=== PATIENT | female | born 1985 | race Caucasian/White ===

== ENCOUNTER 2018-03-08 19:46 | Emergency (ER) | payer BC ==
[2018-03-08 20:02] VITALS: BP 130/77
--- NOTE | 2018-03-08 20:09 | ED Physician Documentation ---
PD HPI ANIMAL BITE - Stated complaint Stated Complaint: DOG BITE - Chief complaint Chief Complaint: Laceration - History obtained from History obtained from: Patient - History of Present Illness Location of injury(ies): RUE (upper arm triceps area.) Details of the event: Dog, Pet animal (dog belongs to neighbors on street. The patient was jogging by and the dog came out to road and barked at her. She slowed and the dog seemed okay. However as she passed by it, the dog came from behind, jumped up onto her back and bit at her arm.), Well appearing Timing - onset: Today Timing - details: Abrupt onset Worsened by: Palpating. No: Moving Associated symptoms: No: Weakness, Numbness Contributing factors: Un/under immunized (has not had tetanus in 10 years). No: Immunocompromised, Asplenic Similar symptoms before: Has not had sx before Recently seen: Not recently seen Review of Systems Skin: reports: Abrasion (s). 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 : None HEENT: None Psych: None Musculoskeletal: None Derm: None - Past Surgical History Past Surgical History: No - Present Medications Home Medications: Ambulatory Orders Medication Instructions Recorded Confirmed Amox/Clav 875/125 [Augmentin] 1 each PO BID #10 tablet 03/08/18 - Allergies Allergies/Adverse Reactions: Allergies Allergy/AdvReac Type Severity Reaction Status Date / Time No Known Drug Allergies Allergy Verified 03/08/18 20:02 - Social History Does the pt smoke?: No Smoking Status: Never smoker Does the pt drink ETOH?: No Does the pt have substance abuse?: No - Immunizations Immunizations are current?: Yes - POLST Patient has POLST: No PD ED PE NORMAL - Vitals Vital signs reviewed: Yes - General General: Alert and oriented X 3, No acute distress, Well developed/nourished - Cardiac Cardiac: RRR, No murmur - Respiratory Respiratory: Clear bilaterally, Other (no chestwall tenderness) - Derm Derm: Normal color, Warm and dry - Extremities Extremities: No deformity, Other (right upper arm posteriorly in triceps area w ith partial thickness abrasion. No laceration per se. There is bruising of the skin locally in that area, about 3-4 cm. Good ROM of the arm. ) - Neuro Neuro: No motor deficit, No sensory deficit Results - Vitals Vitals: Vital Signs - 24 hr 03/08/18 19:59 Temperature 36.9 C Heart Rate 83 Respiratory 16 Rate Blood Pressure 130/77 O2 Saturation 100 Oxygen O2 Source Room air PD MEDICAL DECISION MAKING - ED course Complexity details: considered differential (mild inury. Her concern was for tetanus booster and evaluation of wound. ), d/w patient Departure - Departure Disposition: 01 Home, Self Care Clinical Impression: Abrasion Dog bite of right upper arm Qualifiers: Encounter type: initial encounter Qualified Code(s): S41.151A - Open bite of right upper arm, initial encounter Condition: Stable Record reviewed to determine appropriate education?: Yes Instructions: ED Bite Dog Prescriptions: Amox/Clav 875/125 [Augmentin] 1 each PO BID #10 tablet Comments: This seems likely a low risk infection though animal bites are little higher risk than normal abrasions and injuries. Clean the area with soap and water and apply ointment to 3 times a day for the next few days. If you develop signs of infection then start the Augmentin antibiotic twice daily for 5 days. Otherwise Tylenol or ibuprofen if needed for pains. Discharge Date/Time: 03/08/18 20:33
== END 2018-03-08 20:33 | disposition home or self-care (01) ==
LOC: ED 19:46
DX: S41.151A Open bite of right upper arm, initial encounter (principal); W54.0XXA Bitten by dog, initial encounter; Y93.02 Activity, running; Y92.410 Unspecified street and highway as the place of occurrence of the external cause
CPT/HCPCS: 99283

== ENCOUNTER 2019-08-16 12:42 | Outpatient (CLI) | payer OTHER | END 2019-08-16 12:43 | disposition critical access hospital (66) | LOC: EMS 12:42 | PROVIDERS: ATTEND Surgery | DX: R06.02 Shortness of breath (principal); R05 Cough; J02.9 Acute pharyngitis, unspecified | CPT/HCPCS: A0425; A0429 ==

== ENCOUNTER 2019-08-16 13:03 | Emergency (ER) | payer BC, OTHER ==
[2019-08-16] MEDS ORDERED: ALBUTEROL NEB 2.5 MG/3 ML INH STA (13:23)
--- NOTE | 2019-08-16 13:38 | ED Physician Documentation ---
History of Present Illness - Stated complaint Stated Complaint: COUGH - Chief complaint Chief Complaint: Resp - History obtained from History obtained from: Patient - History of Present Illness Timing: Today Pain level max: 0 Pain level now: 0 - Additonal information Additional information: 33-year-old female presents to the emergency department with rhinorrhea, congestion, cough and sore throat for the past several days. She states she lost her voice 2 days ago. [place] like she was short of breath today. called 911. Daughter was sick with same last week and is now better. Nothing makes it better or worse. T-max 101 at home Review of Systems Constitutional: reports: Fever. 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 : None HEENT: None Psych: None Musculoskeletal: None Derm: None - Past Surgical History Past Surgical History: No - Present Medications Home Medications: Ambulatory Orders Medication Instructions Recorded Confirmed Amox/Clav 875/125 [Augmentin] 1 each PO BID #10 tablet 03/08/18 Albuterol Sulf [Ventolin Hfa 1 - 2 puffs INH Q4HR PRN #1 inhaler 08/16/19 Inhaler] - Allergies Allergies/Adverse Reactions: Allergies Allergy/AdvReac Type Severity Reaction Status Date / Time No Known Drug Allergies Allergy Verified 03/08/18 20:02 - Social History Does the pt smoke?: No Smoking Status: Never smoker Does the pt drink ETOH?: No Does the pt have substance abuse?: No - Immunizations Immunizations are current?: Yes - POLST Patient has POLST: No PD ED PE NORMAL - Vitals Vital signs reviewed: Yes - General General: Alert and oriented X 3, No acute distress, Well developed/nourished - HEENT HEENT: PERRL, Ears normal, Moist mucous membranes, Pharynx benign - Neck Neck: Supple, no meningeal sign, No adenopathy - Cardiac Cardiac: RRR, Strong equal pulses - Respiratory Respiratory: No respiratory distress, Other (Mild diminished breath sounds bilaterally. No wheezing.) - Abdomen Abdomen: Soft, Non tender, Non distended - Derm Derm: Warm and dry, No rash - Neuro Neuro: Alert and oriented X 3 - Psych Psych: Normal mood, Normal affect Results - Vitals Vitals: Vital Signs - 24 hr 08/16/19 08/16/19 13:15 13:48 Temperature 37.3 C Heart Rate 97 98 Respiratory 16 16 Rate Blood Pressure 139/93 H O2 Saturation 100 Oxygen O2 Source Room air - Rads (name of study) cxr Radiology: Prelim report reviewed, EMP read contemporaneously, See rad report (No acute disease) PD MEDICAL DECISION MAKING - ED course Complexity details: reviewed results, considered differential, d/w patient ED course: Patient is well-appearing, nontoxic. Afebrile. Feels much better after nebulizer treatment. Will prescribe an inhaler for home. Her daughter is asthmatic. Coronavirus testing sent. Patient counseled regarding signs and symptoms for which I believe and urgent re-evaluation would be necessary. Patient with good understanding of and agreement to plan and is comfortable going home at this time This document was made in part using voice recognition software. While efforts are made to proofread this document, sound alike and grammatical errors may occur. Departure - Departure Disposition: 01 Home, Self Care Clinical Impression: Viral URI Condition: Good Instructions: ED URI Viral W Wheezing Follow-Up: your,doctor in 1 week [Other] Prescriptions: Albuterol Sulf [Ventolin Hfa Inhaler] 1 - 2 puffs INH Q4HR PRN #1 inhaler PRN Reason: Shortness Of Air/Wheezing Comments: Return if you worsen. Follow up with your doctor for further care.
--- NOTE | 2019-08-16 13:58 | XRAY Report ---
Reason: cough Procedure Date: 08/16/2019 Accession Number: [id number] / [id number] Procedure: XR - Chest 1 View X-Ray CPT Code: 90863 Final Report FULL RESULT: EXAM: CHEST RADIOGRAPHY EXAM DATE: 08/16/2019 01:52 PM. CLINICAL HISTORY: Cough. Fever and sore throat for a few days. COMPARISON: None. TECHNIQUE: 1 view. FINDINGS: Lungs/Pleura: No focal opacities evident. No pleural effusion. No pneumothorax. Mediastinum: Within exam limitations, the cardiomediastinal contour is normal. Other: None. IMPRESSION: Normal single view chest. RADIA
[2019-08-16 14:26] VITALS: BP 128/89
== END 2019-08-16 14:29 | disposition home or self-care (01) ==
LOC: EDBD → EDUNIT# → ED 13:03
DX: J06.9 Acute upper respiratory infection, unspecified (principal)
CPT/HCPCS: 71045; 81599; 94640; 94664; 99284

== ENCOUNTER 2020-01-18 04:39 | Inpatient (IN) | payer OTHER ==
--- NOTE | 2020-01-18 04:52 | ED Physician Documentation ---
PD HPI ABD PAIN - Stated complaint Stated Complaint: RLQ PX - Chief complaint Chief Complaint: Abd Pain - History obtained from History obtained from: Patient - History of Present Illness Timing - onset: Enter time (04:00), Today Timing - details: Abrupt onset Pain level max: 10 Pain level now: 10 Quality: Pain Location: RLQ Radiation: Other (across lower abdomen) Improved by: Other (no ameliorating factors) Worsened by: Other (no exacerbating factors) Associated symptoms: No: Fever, Nausea, Vomiting, Diarrhea, Constipation Similar symptoms before: Has not had sx before Recently seen: Not recently seen Review of Systems Constitutional: denies: Fever, Chills, Sweats Eyes: reports: Reviewed and negative Ears: reports: Reviewed and negative Nose: reports: Reviewed and negative Throat: reports: Reviewed and negative Cardiac: reports: Reviewed and negative Respiratory: reports: Reviewed and negative GI: reports: Abdominal Pain. 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 HEENT: None Psych: None Musculoskeletal: None Derm: None - Past Surgical History Past Surgical History: No - Present Medications Home Medications: Ambulatory Orders Medication Instructions Recorded Confirmed Amox/Clav 875/125 [Augmentin] 1 each PO BID #10 tablet 03/08/18 Albuterol Sulf [Ventolin Hfa 1 - 2 puffs INH Q4HR PRN #1 inhaler 08/16/19 Inhaler] - Allergies Allergies/Adverse Reactions: Allergies Allergy/AdvReac Type Severity Reaction Status Date / Time No Known Drug Allergies Allergy Verified 03/08/18 20:02 - Social History Does the pt smoke?: No Smoking Status: Never smoker Does the pt drink ETOH?: No Does the pt have substance abuse?: No - Immunizations Immunizations are current?: Yes - POLST Patient has POLST: No PD ED PE NORMAL - Vitals Vital signs reviewed: Yes - General General: Alert and oriented X 3, Well developed/nourished, Other (obvious painful distress) - HEENT HEENT: Moist mucous membranes - Neck Neck: Supple, no meningeal sign - Cardiac Cardiac: No murmur - Respiratory Respiratory: No respiratory distress, Clear bilaterally - Abdomen Abdomen: Soft, Non distended - Back Back: No CVA TTP - Derm Derm: Normal color, Warm and dry - Extremities Extremities: No edema PD ED PE EXPANDED - Cardiac Cardiac: Tachy, Regular Rhythm - Abdomen Abdomen: Tender to palpation (RLQ TTP without rebound) Results - Vitals Vitals: Vital Signs - 24 hr 01/18/20 01/18/20 01/18/20 04:50 05:45 06:29 Temperature 36.6 C Heart Rate 119 H 93 96 Respiratory 28 H 18 18 Rate Blood Pressure 134/103 H 125/86 H O2 Saturation 100 99 100 01/18/20 07:47 Temperature Heart Rate 86 Respiratory 18 Rate Blood Pressure 119/72 O2 Saturation 100 Oxygen O2 Source Room air - Labs Labs: Laboratory Tests 01/18/20 01/18/20 01/18/20 04:55 04:55 04:55 WBC 10.7 RBC 4.54 Hgb 13.2 Hct 39.8 MCV 87.7 MCH 29.1 MCHC 33.2 RDW 13.1 Plt Count 226 MPV 9.3 Neut # (Auto) 7.3 H Lymph # (Auto) 2.5 [place] # (Auto) 0.6 Eos # (Auto) 0.2 Baso # (Auto) 0.1 Absolute Nucleated RBC 0.00 Nucleated RBC % 0.0 Sodium 138 Potassium 3.6 Chloride 103 Carbon Dioxide 24 Anion Gap 11.0 BUN 14 Creatinine 0.7 Estimated GFR (MDRD) 96 Glucose 106 H Calcium 8.9 Total Bilirubin 0.6 AST 18 ALT 17 Alkaline Phosphatase 56 Total Protein 7.4 Albumin 4.1 Globulin 3.3 Albumin/Globulin Ratio 1.2 Lipase 35 HCG, Quant < 0.60 Urine Color Urine Clarity Urine pH Ur Specific [place] Urine Protein Urine Glucose (UA) Urine Ketones Urine Occult Blood Urine Nitrite Urine Bilirubin Urine Urobilinogen Ur Leukocyte Esterase Ur Microscopic Review Urine Culture Comments 01/18/20 06:05 WBC RBC Hgb Hct MCV MCH MCHC RDW Plt Count MPV Neut # (Auto) Lymph # (Auto) [place] # (Auto) Eos # (Auto) Baso # (Auto) Absolute Nucleated RBC Nucleated RBC % Sodium Potassium Chloride Carbon Dioxide Anion Gap BUN Creatinine Estimated GFR (MDRD) Glucose Calcium Total Bilirubin AST ALT Alkaline Phosphatase Total Protein Albumin Globulin Albumin/Globulin Ratio Lipase HCG, Quant Urine Color YELLOW Urine Clarity CLEAR Urine pH 6.5 Ur Specific [place] <=1.005 Urine Protein NEGATIVE Urine Glucose (UA) NEGATIVE Urine Ketones NEGATIVE Urine Occult Blood NEGATIVE Urine Nitrite NEGATIVE Urine Bilirubin NEGATIVE Urine Urobilinogen 0.2 (NORMAL) Ur Leukocyte Esterase NEGATIVE Ur Microscopic Review NOT INDICATED Urine Culture Comments NOT INDICATED - Rads (name of study) CT A/P w/ IV contrast Radiology: Prelim report reviewed, See rad report PD MEDICAL DECISION MAKING - ED course Complexity details: reviewed results, re-evaluated patient, considered differential, d/w patient ED course: significant improvement with IV toradol. CT interpreted as acute appendicitis by radiologist. D/W Dr. Azevedo, will evaluate patient in ED and plans to take patient to OR later this morning for appendectomy. Patient subsequently had gradual return of the RLQ pain and was given 2mg IV morphine with good effect. Departure - Departure Disposition: ED Transfer to [facility] Clinical Impression: Appendicitis Qualifiers: Appendicitis type: acute appendicitis Acute appendicitis type: with localized peritonitis Appendicitis gangrene presence: without gangrene Appendicitis perforation presence: without perforation Appendicitis abscess presence: without abscess Qualified Code(s): K35.30 - Acute appendicitis with localized peritonitis, without perforation or gangrene Condition: Good
[2020-01-18] MEDS ORDERED: SODIUM CHLORIDE 0.9% 1,000 ML IV STA (05:06)
[2020-01-18] MEDS ORDERED: KETOROLAC 30 MG/ML VIAL ONE (05:09)
[2020-01-18 05:16] LABS: BASOPHILS # (AUTO) 0.1 10^3/uL (0.0-0.1); BASOPHILS % (AUTO) 0.6 %; EOSINOPHILS # (AUTO) 0.2 10^3/uL (0.0-0.7); EOSINOPHILS % (AUTO) 1.4 %; HGB - HEMOGLOBIN 13.2 g/dL (12.0-16.0); LYMPHOCYTES # (AUTO) 2.5 10^3/uL (1.5-3.5); LYMPHOCYTES % (AUTO) 23.5 %; MEAN CORPUSCULAR HEMOGLOBIN 29.1 pg (27.0-31.0); MEAN CORPUSCULAR HGB CONC 33.2 g/dL (32.0-36.0); MEAN CORPUSCULAR VOLUME 87.7 fL (81.0-99.0); MEAN PLATELET VOLUME 9.3 fL (7.9-10.8); MONOCYTES # (AUTO) 0.6 10^3/uL (0.0-1.0); MONOCYTES % (AUTO) 5.5 %; NEUTROPHILS # (AUTO) 7.3 10^3/uL (1.5-6.6); NEUTROPHILS % (AUTO) 68.5 %; PLT - PLATELET COUNT 226 10^3/uL (130-450); RED BLOOD COUNT 4.54 10^6/uL (4.20-5.40); RED CELL DISTRIBUTION WIDTH 13.1 % (12.0-15.0); WHITE BLOOD COUNT 10.7 x10^3/uL (4.8-10.8)
[2020-01-18] MEDS ORDERED: KETOROLAC 30 MG/ML VIAL IVP STA (05:16)
[2020-01-18 05:30] LABS: ALBUMIN 4.1 g/dL (3.2-5.5); ALBUMIN/GLOBULIN RATIO 1.2 (1.0-2.2); BILIRUBIN,TOTAL 0.6 mg/dL (0.2-1.0); CALCIUM 8.9 mg/dL (8.5-10.3); CREATININE 0.7 mg/dL (0.4-1.0); TOTAL PROTEIN 7.4 g/dL (6.7-8.2)
[2020-01-18] MEDS ORDERED: IOVERSOL 320 100 ML VIAL IVP ONE ×2 (06:05→06:30)
[2020-01-18 06:31] LABS: BILIRUBIN,URINE NEGATIVE (NEGATIVE); GLUCOSE, URINE (UA) NEGATIVE (NEGATIVE); KETONES,URINE (UA) NEGATIVE (NEGATIVE); LEUKOCYTE ESTERASE, URINE NEGATIVE (NEGATIVE); NITRITE,URINE NEGATIVE (NEGATIVE); OCCULT BLOOD,URINE NEGATIVE (NEGATIVE); PH,URINE 6.5 PH (5.0-7.5); PROTEIN,URINE NEGATIVE (NEGATIVE); UROBILINOGEN,URINE 0.2 (NORMAL) E.U./dL (NORMAL)
[2020-01-18 06:32] LABS: CLARITY,URINE CLEAR (CLEAR)
[2020-01-18] MEDS ORDERED: MORPHINE 2 MG/ML CARPUJECT IVP STA ×2 (07:39→10:16)
[2020-01-18] MEDS ORDERED: ceFAZolin 2 GM in SODIUM CHLORIDE 0.9% 100ML 100 ML IV STA (09:02)
[2020-01-18] MEDS ORDERED: metroNIDAZOLE 500 MG/100 ML 500 MG/100 ML BAG IV ONE (09:02)
--- NOTE | 2020-01-18 09:16 | HISTORY & PHYSICAL EXAMINATION ---
Chief Complaint - Chief Complaint Chief Complaint: abdominal pain few days. much worse early am today. 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 has a 6 year old daughter - POLST Patient has POLST: No Meds/Allgy - Home Medications Home Medications: Ambulatory Orders Medication Instructions Recorded Confirmed Amox/Clav 875/125 [Augmentin] 1 each PO BID #10 tablet 03/08/18 Albuterol Sulf [Ventolin Hfa 1 - 2 puffs INH Q4HR PRN #1 inhaler 08/16/19 Inhaler] - Allergies Allergies/Adverse Reactions: Allergies Allergy/AdvReac Type Severity Reaction Status Date / Time No Known Drug Allergies Allergy Verified 03/08/18 20:02 Review of Systems - Constitutional Constitutional: reports: Fatigue (10 pt ros as above and below otherwise unremarkable) Exam - Vital Signs Vital Signs: Vital Signs x48h Temp Pulse Resp BP Pulse Ox 01/18/20 09:00 93 19 120/86 H 100 01/18/20 07:47 86 18 119/72 100 01/18/20 06:29 96 18 125/86 H 100 01/18/20 05:45 93 18 99 01/18/20 04:50 36.6 C 119 H 28 H 134/103 H 100 - Physical Exam General Appearance: positive: No acute distress, Alert Eyes Bilateral: positive: PERRL, EOMI ENT: positive: No signs of dehydration Neck: positive: No JVD Respiratory: positive: No respiratory distress Cardiovascular: positive: Regular rate & rhythm Abdomen: positive: No distention, Other (low abdominal tenderness to deep palpation) Extremities: positive: No pedal edema Neurologic/Psychiatric: positive: Oriented x3 Results - Lab Results Fish Bones: 01/18/20 04:55 01/18/20 04:55 Other Lab Results: Lab Results x24hrs 01/18/20 01/18/20 01/18/20 Range/Units 06:05 04:55 04:55 WBC (4.8-10.8) x10^3/uL RBC (4.20-5.40) 10^6/uL Hgb (12.0-16.0) g/dL Hct (37.0-47.0) % MCV (81.0-99.0) fL MCH (27.0-31.0) pg MCHC (32.0-36.0) g/dL RDW (12.0-15.0) % Plt Count (130-450) 10^3/uL MPV (7.9-10.8) fL Neut # (Auto) (1.5-6.6) 10^3/uL Lymph # (Auto) (1.5-3.5) 10^3/uL [place] # (Auto) (0.0-1.0) 10^3/uL Eos # (Auto) (0.0-0.7) 10^3/uL Baso # (Auto) (0.0-0.1) 10^3/uL Absolute Nucleated RBC x10^3/uL Nucleated RBC % /100WBC Sodium 138 (135-145) mmol/L Potassium 3.6 (3.5-5.0) mmol/L Chloride 103 (101-111) mmol/L Carbon Dioxide 24 (21-32) mmol/L Anion Gap 11.0 (6-13) BUN 14 (6-20) mg/dL Creatinine 0.7 (0.4-1.0) mg/dL Estimated GFR (MDRD) 96 (>89) Glucose 106 H (70-100) mg/dL Calcium 8.9 (8.5-10.3) mg/dL Total Bilirubin 0.6 (0.2-1.0) mg/dL AST 18 (10-42) IU/L ALT 17 (10-60) IU/L Alkaline Phosphatase 56 (42-121) IU/L Total Protein 7.4 (6.7-8.2) g/dL Albumin 4.1 (3.2-5.5) g/dL Globulin 3.3 (2.1-4.2) g/dL Albumin/Globulin Ratio 1.2 (1.0-2.2) Lipase 35 (22-51) U/L HCG, Quant < 0.60 mIU/mL Urine Color YELLOW Urine Clarity CLEAR (CLEAR) Urine pH 6.5 (5.0-7.5) PH Ur Specific [place] <=1.005 (1.002-1.030) Urine Protein NEGATIVE (NEGATIVE) mg/dL Urine Glucose (UA) NEGATIVE (NEGATIVE) mg/dL Urine Ketones NEGATIVE (NEGATIVE) mg/dL Urine Occult Blood NEGATIVE (NEGATIVE) Urine Nitrite NEGATIVE (NEGATIVE) Urine Bilirubin NEGATIVE (NEGATIVE) Urine Urobilinogen 0.2 (NORMAL) (NORMAL) E.U./dL Ur Leukocyte Esterase NEGATIVE (NEGATIVE) Ur Microscopic Review NOT INDICATED Urine Culture Comments NOT INDICATED 01/18/20 Range/Units 04:55 WBC 10.7 (4.8-10.8) x10^3/uL RBC 4.54 (4.20-5.40) 10^6/uL Hgb 13.2 (12.0-16.0) g/dL Hct 39.8 (37.0-47.0) % MCV 87.7 (81.0-99.0) fL MCH 29.1 (27.0-31.0) pg MCHC 33.2 (32.0-36.0) g/dL RDW 13.1 (12.0-15.0) % Plt Count 226 (130-450) 10^3/uL MPV 9.3 (7.9-10.8) fL Neut # (Auto) 7.3 H (1.5-6.6) 10^3/uL Lymph # (Auto) 2.5 (1.5-3.5) 10^3/uL [place] # (Auto) 0.6 (0.0-1.0) 10^3/uL Eos # (Auto) 0.2 (0.0-0.7) 10^3/uL Baso # (Auto) 0.1 (0.0-0.1) 10^3/uL Absolute Nucleated RBC 0.00 x10^3/uL Nucleated RBC % 0.0 /100WBC Sodium (135-145) mmol/L Potassium (3.5-5.0) mmol/L Chloride (101-111) mmol/L Carbon Dioxide (21-32) mmol/L Anion Gap (6-13) BUN (6-20) mg/dL Creatinine (0.4-1.0) mg/dL Estimated GFR (MDRD) (>89) Glucose (70-100) mg/dL Calcium (8.5-10.3) mg/dL Total Bilirubin (0.2-1.0) mg/dL AST (10-42) IU/L ALT (10-60) IU/L Alkaline Phosphatase (42-121) IU/L Total Protein (6.7-8.2) g/dL Albumin (3.2-5.5) g/dL Globulin (2.1-4.2) g/dL Albumin/Globulin Ratio (1.0-2.2) Lipase (22-51) U/L HCG, Quant mIU/mL Urine Color Urine Clarity (CLEAR) Urine pH (5.0-7.5) PH Ur Specific [place] (1.002-1.030) Urine Protein (NEGATIVE) mg/dL Urine Glucose (UA) (NEGATIVE) mg/dL Urine Ketones (NEGATIVE) mg/dL Urine Occult Blood (NEGATIVE) Urine Nitrite (NEGATIVE) Urine Bilirubin (NEGATIVE) Urine Urobilinogen (NORMAL) E.U./dL Ur Leukocyte Esterase (NEGATIVE) Ur Microscopic Review Urine Culture Comments - Diagnostic Imaging Results Diagnostic Imaging Results: positive: Read independently (ct appendicitis) Impression/Plan - Problem List Problem List: Appendicitis Plan lap appendectomy Parq held and consent obtained.
--- NOTE | 2020-01-18 09:51 | CT Report ---
PROCEDURE: Abdomen/Pelvis W INDICATIONS: abdominal pain CONTRAST: IV CONTRAST: Optiray 320 ml: 100 PO CONTRAST: *NO PO CONTRAST TECHNIQUE: After the administration of 100 contrast, 5 mm thick sections acquired from the diaphragms to the sym physis. 5 mm thick coronal and sagittal reformats were acquired. For radiation dose reduction, the following was used: automated exposure control, adjustment of mA and/or kV according to patient size . COMPARISON: None. FINDINGS: Image quality: Excellent. ABDOMEN: Lung bases: Lung bases are clear. Heart size is normal. A small hiatal hernia is incidentally note d. Solid organs: Liver and spleen are normal in size and enhancement. Gallbladder wall does not appear thickened. Biliary system is non dilated. Pancreas enhances normally. No adrenal nodules. Kidn eys demonstrate normal size and enhancement, without hydronephrosis. Peritoneum and bowel: The appendix is abnormal, with a hyperenhancing wall and abnormal caliber, kamla suring 1 cm. Mild surrounding inflammatory changes are seen. No free air is seen. No abscess formatio n is seen. Bowel loops otherwise demonstrate normal wall thickness and caliber. No free air. Nodes and vessels: No retroperitoneal or mesenteric adenopathy by size criteria. Aorta and inferior vena cava are normal in size. Miscellaneous: No ventral hernias. PELVIS: Genitourinary: Bladder wall thickness is normal. The uterus demonstrates an unremarkable appearance . A mild amount of fluid can be seen within the pelvis, which is likely physiologic. Miscellaneous: No inguinal hernias or adenopathy. Bones: No suspicious bony lesions. No vertebral body compression fractures. Grade 1 L5-S1 anteroli sthesis is seen, with associated bilateral pars defects. IMPRESSION: Acute appendicitis. No findings of perforation or abscess can be seen. Incidental note is made of: Small hiatal hernia Bilateral L5 pars defects, with associated mild grade 1 anterolisthesis. Note: No significant discrepancy from the preliminary report. Reviewed by: Supa Garner MD on 01/18/2020 8:50 AM RENETTA Approved by: Supa Garner MD on 01/18/2020 8:50 AM RENETTA Station ID: [id number]
--- NOTE | 2020-01-18 10:02 | ANESTHESIA ---
Pre-Anesthesia VS, & Labs - Diagnosis acute appedicitis - Procedure laparoscopic appendectomy Vital Signs: Temp Pulse Resp BP Pulse Ox 36.6 C 93 19 120/86 H 100 01/18/20 04:50 01/18/20 09:00 01/18/20 09:00 01/18/20 09:00 01/18/20 09:00 Height 5 ft 6 in Weight (kg) 72.575 kg Body Mass Index 25.8 - NPO >8 hours - Is Patient ?: No - Lab Results Current Lab Results: Laboratory Tests 01/18/20 04:55: HCG, Quant < 0.60 01/18/20 04:55: Sodium 138, Potassium 3.6, Chloride 103, Carbon Dioxide 24, Anion Gap 11.0, BUN 14, Creatinine 0.7, Estimated GFR (MDRD) 96, Glucose 106 H, Calcium 8.9, Total Bilirubin 0.6, AST 18, ALT 17, Alkaline Phosphatase 56, Total Protein 7.4, Albumin 4.1, Globulin 3.3, Albumin/Globulin Ratio 1.2, Lipase 35 01/18/20 04:55: WBC 10.7, RBC 4.54, Hgb 13.2, Hct 39.8, MCV 87.7, MCH 29.1, MCHC 33.2, RDW 13.1, Plt Count 226, MPV 9.3, Neut # (Auto) 7.3 H, Lymph # (Auto) 2.5, [place] # (Auto) 0.6, Eos # (Auto) 0.2, Baso # (Auto) 0.1, Absolute Nucleated RBC 0.00, Nucleated RBC % 0.0 Fish Bones: 01/18/20 04:55 01/18/20 04:55 Home Medications and Allergies Active Medications Metronidazole (Flagyl 500 Mg/100 Ml) 500 mg in 100 mls @ 100 mls/hr IV ONCE ONE Stop: 01/18/20 10:01 Last Admin: 01/18/20 09:58 Dose: 100 mls/hr Documented by: Allergies/Adverse Reactions: Allergies Allergy/AdvReac Type Severity Reaction Status Date / Time No Known Drug Allergies Allergy Verified 03/08/18 20:02 Anes History & Medical History - Anesthetic History Anesthesia Complications: reports: No previous complications Family history of Anesthesia Complications: Denies Family history of Malignant Hyperthermia: Denies - Medical History Cardiovascular: reports: None Pulmonary: reports: None Gastrointestinal: reports: None Urinary: reports: None Neuro: reports: None Musculoskeletal: reports: None Endocrine/Autoimmune: reports: None Blood Disorders: reports: None Skin: reports: None Smoking Status: Never smoker Exam General: Alert, Oriented x3, Cooperative Dental: WNL Mouth Openin Fingerbreadth Neck Mobility: Normal Mallampati classification: II Thyromental Distance: 4-6 cm Respiratory: Lungs clear, Normal breath sounds, No respiratory distress Cardiovascular: Regular rate Neurological: Normal speech Mental/Cognitive Status: Alert/Oriented X3, Normal for patient Cognitive Status: Within normal limits Plan Anesthesia Type: General Consent for Procedure(s) Verified and Reviewed: Yes Code Status: Attempt Resuscitation ASA classification: 1-Healthy patient Is this case an emergency?: Yes
[2020-01-18] MEDS ORDERED: ONDANSETRON 4 MG/2 ML VIAL IVP PRN ×2 (10:03→12:43)
[2020-01-18] MEDS ORDERED: ePHEDrine 50 MG/ML VIAL IVP PRN (10:03)
[2020-01-18] MEDS ORDERED: METOCLOPRAMIDE 10 MG/2 ML VIAL IVP PRN ×2 (10:03→17:10)
[2020-01-18] MEDS ORDERED: NALOXONE 0.4 MG/ML VIAL IVP PRN (10:03)
[2020-01-18] MEDS ORDERED: MORPHINE 2 MG/ML CARPUJECT IVP PRN (10:03)
[2020-01-18] MEDS ORDERED: ATROPINE ABBOJECT 1 MG/10 ML SYRINGE IVP PRN (10:03)
[2020-01-18] MEDS ORDERED: LIDOCAINE-MPF 2% 5 ML VIAL IM ONE (10:24)
[2020-01-18] MEDS ORDERED: ACETAMINOPHEN 1,000 MG/100 ML 100 ML IV ONE (10:24)
[2020-01-18] MEDS ORDERED: fentaNYL 100 MCG/2 ML VIAL IVP ONE (10:24)
[2020-01-18] MEDS ORDERED: MIDAZOLAM 2 MG/2 ML VIAL IVP ONE (10:24)
[2020-01-18] MEDS ORDERED: ONDANSETRON 4 MG/2 ML VIAL IVP ONE (10:24)
[2020-01-18] MEDS ORDERED: NEOSTIGMINE 1 MG/1 ML 10 ML MDV IVP ONE (10:24)
[2020-01-18] MEDS ORDERED: ROCURONIUM 50 MG/5 ML VIAL IVP ONE (10:24)
[2020-01-18] MEDS ORDERED: GLYCOPYRROLATE 1 MG/5 ML VIAL IVP ONE (10:24)
[2020-01-18] MEDS ORDERED: PROPOFOL 200 MG/20 ML VIAL IVP ONE (10:24)
[2020-01-18] MEDS ORDERED: DEXAMETHASONE 4 MG/ML VIAL IVP ONE (10:24)
[2020-01-18] MEDS ORDERED: BUPIVACAINE 0.25% PF 30 ML VIAL ONE ×2 (10:46→12:20)
[2020-01-18] MEDS ORDERED: LACTATED RINGERS 1,000 ML IV SCH (11:00)
[2020-01-18] MEDS ORDERED: BUPIVACAINE 0.25% PF 30 ML VIAL SUBQ ONE (11:12)
[2020-01-18] MEDS ORDERED: LACTATED RINGERS 1,000 ML IV ONE ×2 (12:42→14:20)
[2020-01-18] MEDS ORDERED: ACETAMINOPHEN 325 MG TABLET PO PRN (12:43)
[2020-01-18] MEDS ORDERED: PROCHLORPERAZINE 5 MG TABLET PO PRN (12:51)
[2020-01-18] MEDS ORDERED: AMPICILLIN/SULBACTAM 3 GM in SODIUM CHLORIDE 0.9% MINIBAG 100 ML IV SCH (13:00)
[2020-01-18] MEDS ORDERED: ONDANSETRON 4 MG/2 ML VIAL ONE (13:03)
[2020-01-18] MEDS: HYDROmorphone 0.5 MG/0.5 ML SYRINGE IVP PRN ×3 (13:34→17:28)
[2020-01-18] MEDS: fentaNYL 100 MCG/2 ML VIAL IVP PRN ×2 (13:35→14:00)
[2020-01-18] MEDS ORDERED: fentaNYL 100 MCG/2 ML VIAL ONE ×2 (13:38→14:04)
[2020-01-18] MEDS ORDERED: HYDROmorphone 0.5 MG/0.5 ML SYRINGE ONE ×2 (13:38→14:05)
--- NOTE | 2020-01-18 13:46 | ANESTHESIA POST OP EVALUATION ---
Anesthesia Post Eval - Post Anesthesia Eval Vitals: Last Vital Signs Temp 36.5 C 01/18/20 13:30 Pulse 69 01/18/20 13:40 Resp 11 L 01/18/20 13:40 BP 96/61 01/18/20 13:40 Pulse Ox 95 01/18/20 13:40 CV Function Including HR & BP: positive: Stable Pain Control: positive: Satisfactory Nausea & Vomiting: positive: Addtional Therapies Ordered (additional zofran and scope patch. Pt also received 40mg propofol in PACU after continous dry heaving.) Mental Status: positive: Baseline Respiratory Status: Airway Patent Hydration Status: Satisfactory (IVF running to floor) Anesthesia Complications: positive: Other (PONV)
[2020-01-18] MEDS ORDERED: SCOPOLAMINE PATCH TOP ONE (13:56)
[2020-01-18] MEDS ORDERED: SCOPOLAMINE PATCH TOP SCH (14:00)
[2020-01-18] MEDS: D5NS W/20 MEQ KCL 1,000 ML IV SCH (14:51)
[2020-01-18] MEDS: ONDANSETRON ODT 4 MG TABLET TL PRN ×2 (14:58→21:32)
[2020-01-18] MEDS: AMPICILLIN/SULBACTAM 3 GM in SODIUM CHLORIDE 0.9% MINIBAG 100 ML IV SCH ×2 (16:03→22:08)
[2020-01-18] MEDS: SODIUM CHLORIDE FLUSH 0.9% 10 ML SYRINGE IVP SCH (16:04)
--- NOTE | 2020-01-18 17:01 | PHARMACY PROGRESS NOTE ---
- Best Possible Medication History Admit Date and Time: 01/18/20 1243 Processed by: Nursing Medication History completed: Yes Patient Interview: Completed Secondary Source(s): Pharmacy records, Insurance records As the person ultimately responsible for medication therapy, providers are able to order a medication from an existing home medication list in [facility] via the "Reconcile Routine" prior to Confirmation of that medication by director of sales support. Such practice is discouraged except when the physician, in their clinical judgment, deems that a medical need exists for a medication without regard to previous use.
[2020-01-18] MEDS: SODIUM CHLORIDE FLUSH 0.9% 10 ML SYRINGE IVP PRN ×2 (17:29→18:27)
[2020-01-18] MEDS: KETOROLAC 15 MG/ML VIAL IVP SCH (18:27)
[2020-01-18] MEDS: FAMOTIDINE 20 MG TABLET PO SCH (22:08)
[2020-01-18] MEDS: HYDROcod/ACETAM 5/325 MG TABLET PO PRN (22:09)
[2020-01-19] MEDS: SODIUM CHLORIDE FLUSH 0.9% 10 ML SYRINGE IVP SCH ×2 (00:34→08:22)
[2020-01-19] MEDS: KETOROLAC 15 MG/ML VIAL IVP SCH ×3 (00:34→12:42)
[2020-01-19] MEDS: D5NS W/20 MEQ KCL 1,000 ML IV SCH ×3 (01:34→14:14)
[2020-01-19] MEDS: AMPICILLIN/SULBACTAM 3 GM in SODIUM CHLORIDE 0.9% MINIBAG 100 ML IV SCH ×2 (04:05→08:25)
[2020-01-19] MEDS: HYDROcod/ACETAM 5/325 MG TABLET PO PRN (08:16)
[2020-01-19] MEDS: FAMOTIDINE 20 MG TABLET PO SCH (08:16)
[2020-01-19] MEDS ORDERED: HEPARIN 5,000 UNIT/ML VIAL SUBQ SCH (09:00)
[2020-01-19] MEDS: HYDROmorphone 0.5 MG/0.5 ML SYRINGE IVP PRN ×2 (09:01→12:43)
[2020-01-19] MEDS: SODIUM CHLORIDE FLUSH 0.9% 10 ML SYRINGE IVP PRN ×2 (09:01→12:44)
--- NOTE | 2020-01-19 11:30 | PROVIDER PROGRESS NOTE ---
Subjective - Prog Note Date Prog Note Date: 01/19/20 - Subjective Pt reports feeling: Improved (tolerating clears. no nausea. feels up to going home) Objective - Vital Signs/Intake & Output Vital Signs: Vital Signs x48h Temp Pulse Pulse Resp BP Pulse Ox 01/19/20 11:15 37.1 C 62 16 99 01/19/20 08:00 37.1 C 62 16 98/55 L 99 01/19/20 04:09 37.1 C 76 16 100/59 L 99 Intake & Output: Intake & Output 01/16/20 01/17/20 01/18/20 01/19/20 23:59 23:59 23:59 23:59 Intake Total 2280.417 2069.583 Output Total 195 720 Balance 2085.417 1349.583 - Objective General Appearance: positive: No acute distress, Alert Eyes Bilateral: positive: Normal inspection Respiratory: positive: No respiratory distress Abdomen: positive: Non-tender, No distention, Other (megan moderated serous. dressings serosanguinous) - Lab Results Fish Bones: 01/18/20 04:55 01/18/20 04:55 Assessment/Plan - Problem List (1) Appendicitis Impression: Appendicitis with abscess. Improved. Home today with drain slowly advance diet as tolerated Qualifiers: Appendicitis type: acute appendicitis Acute appendicitis type: with localized peritonitis Appendicitis gangrene presence: without gangrene Appendicitis perforation presence: without perforation Appendicitis abscess presence: without abscess Qualified Code(s): K35.30 - Acute appendicitis with localized peritonitis, without perforation or gangrene
[2020-01-19 11:33] VITALS: BP 99/57
--- NOTE | 2020-01-19 11:34 | Discharge Plan ---
Discharge Plan Problem Reviewed?: Yes Disposition: Home, Self Care Condition: Good Diet: Regular Activity Restrictions: No Restrictions Shower Restrictions: No (keep incision areas covered) Driving Restrictions: No Weight Bearing: Full Weight Instruction Topics: Metoclopramide injection, Famotidine tablets or gelcaps, Ketorolac injection, Ampicillin Sulbactam injection, Hydromorphone injection, Ondansetron oral dissolving tablet, Appendectomy, Appendectomy After, Appendectomy Laparoscopic Dc Additional Instructions or Follow Up instructions: call monday to make a follow up appointment with surgery for monday. call anytime with any concerns [phone] No Smoking: If you smoke, Please STOP! Call for help.
--- NOTE | 2020-01-19 11:39 | DISCHARGE SUMMARY ---
Discharge Summary Admit Date: 01/18/20 Discharge Date: 01/19/20 Code Status: Attempt Resuscitation - DIAGNOSES Admission Diagnoses: appendicitis with abscess - HPI History of Present Illness: 4 days abdominal pain - HOSPITAL COURSE Hospital Course: surgery 01/18/2020. laparoscopic appendectomy and drainage retroperitoneal abscess. IV anbiotics - ALLERGIES Allergies/Adverse Reactions: Allergies Allergy/AdvReac Type Severity Reaction Status Date / Time No Known Drug Allergies Allergy Verified 03/08/18 20:02 - MEDICATIONS Home Medications: Ambulatory Orders Medication Instructions Recorded Confirmed Cetirizine [ZyrTEC] 10 mg PO DAILY PRN 01/18/20 01/18/20 - PHYSICAL EXAM AT DISCHARGE General Appearance: positive: No acute distress, Alert Respiratory: positive: No respiratory distress Abdomen: positive: Non-tender, No distention Neurologic/Psychiatric: positive: Oriented x3 - LABS Result Diagrams: 01/18/20 04:55 01/18/20 04:55
== END 2020-01-19 13:40 | disposition home or self-care (01) | DRG 337 ==
LOC: ED 04:39 → SDS 09:34 → MS2 12:43
PROVIDERS: ADMIT Surgery; ATTEND Surgery
PROC: 0DNJ4ZZ Release Appendix, Percutaneous Endoscopic Approach (ICD-10-PCS; 2020-01-18)
PROC: 0W9H40Z Drainage of Retroperitoneum with Drainage Device, Percutaneous Endoscopic Approach (ICD-10-PCS; 2020-01-18)
PROC: 0DTJ4ZZ Resection of Appendix, Percutaneous Endoscopic Approach (ICD-10-PCS; principal; 2020-01-18 09:30)
DX: K35.33 Acute appendicitis with perforation, localized peritonitis, and gangrene, with abscess (principal); K38.8 Other specified diseases of appendix
CPT/HCPCS: 36415; 74177; 80053; 81003; 83690; 84702; 85025; 96374; 96375; 99284; 99285; A9270; J0131; J1170; J2765; J3490; J7120; Q0162; Q9967; 81001; 87086

== ENCOUNTER 2020-01-21 12:48 | Emergency (ER) | payer OTHER ==
[2020-01-21 13:15] LABS: BASOPHILS % (AUTO) 0.5 %; EOSINOPHILS # (AUTO) 0.1 10^3/uL (0.0-0.7); EOSINOPHILS % (AUTO) 1.6 %; HGB - HEMOGLOBIN 11.6 g/dL (12.0-16.0); LYMPHOCYTES # (AUTO) 1.8 10^3/uL (1.5-3.5); LYMPHOCYTES % (AUTO) 29.2 %; MEAN CORPUSCULAR HEMOGLOBIN 28.4 pg (27.0-31.0); MEAN CORPUSCULAR HGB CONC 31.9 g/dL (32.0-36.0); MEAN PLATELET VOLUME 8.9 fL (7.9-10.8); MONOCYTES # (AUTO) 0.4 10^3/uL (0.0-1.0); MONOCYTES % (AUTO) 6.8 %; NEUTROPHILS # (AUTO) 3.7 10^3/uL (1.5-6.6); NEUTROPHILS % (AUTO) 61.6 %; PLT - PLATELET COUNT 216 10^3/uL (130-450); RED BLOOD COUNT 4.09 10^6/uL (4.20-5.40); RED CELL DISTRIBUTION WIDTH 13.2 % (12.0-15.0); WHITE BLOOD COUNT 6.1 x10^3/uL (4.8-10.8)
--- NOTE | 2020-01-21 13:16 | ED Physician Documentation ---
History of Present Illness - Stated complaint Stated Complaint: CHEST TIGHTNESS - Additonal information Additional information: 34-year-old female presents to the emergency department for evaluation of chest tightness. She reports that when she lays flat in bed she feels short of air especially when she is elevating her legs. She has been elevating her legs because she has noted that they have been swollen since that she had surgery for appendicitis on the of this month. She denies that she has had any history of leg swelling before the surgery. She states that the leg swelling is worse when she is walking and her feet feel tight to the extent that she cannot fully bend her legs. She denies any pertinent past medical history. No history of hypertension or diabetes. No history of DVT or cancer. She takes no oral contraceptives. She denies any calf pain. At present right now she does not have any leg swelling. Since her surgery she has had no hemoptysis cough or fevers. She does have a DALTON drain exiting the right lower quadrant of her abdomen draining she is scheduled to see Dr. Azevedo in follow-up tomorrow. Review of Systems Constitutional: denies: Fever, Chills Cardiac: reports: Pedal edema. denies: Chest pain / pressure, Palpitations, Calf pain Respiratory: reports: Dyspnea. denies: Cough, Hemoptysis, Wheezing GI: reports: Abdominal Pain (Appendectomy, DALTON drain exiting right lower quadrant of abdomen.). 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 : None HEENT: None Psych: None Musculoskeletal: None Derm: None - Past Surgical History Past Surgical History: No - Present Medications Home Medications: Ambulatory Orders Medication Instructions Recorded Confirmed Cetirizine [ZyrTEC] 10 mg PO DAILY PRN 01/18/20 01/18/20 Hydrocodone/Acetaminophen 1 each PO Q4HR PRN #20 tablet 01/19/20 [Hydrocodone-Acetamin 5-325 mg] Ondansetron Odt [Zofran Odt] 4 mg PO Q6H PRN #15 tablet 01/19/20 - Allergies Allergies/Adverse Reactions: Allergies Allergy/AdvReac Type Severity Reaction Status Date / Time No Known Drug Allergies Allergy Verified 03/08/18 20:02 - Social History Does the pt smoke?: No Smoking Status: Never smoker Does the pt drink ETOH?: No Does the pt have substance abuse?: No - Immunizations Immunizations are current?: Yes - POLST Patient has POLST: No PD ED PE NORMAL - General General: Alert and oriented X 3, No acute distress, Well developed/nourished - HEENT HEENT: PERRL, EOMI - Neck Neck: Supple, no meningeal sign, No adenopathy - Cardiac Cardiac: RRR, No murmur, No gallop, No rub - Respiratory Respiratory: No respiratory distress, Clear bilaterally - Abdomen Abdomen: Normal bowel sounds, Soft. No: Non tender (DALTON drain exiting right low er quadrant of abdomen. Serous fluid seen in drain. 3 laparoscopic incisions with bandages over them appear clean and dry. Mild generalized tenderness with palpation of the abdomen. Non-peritoneal) - Derm Derm: Normal color, Warm and dry, No rash - Extremities Extremities: No deformity, No tenderness to palpate - Neuro Neuro: Alert and oriented X 3, No motor deficit Results - Vitals Vitals: Vital Signs - 24 hr 01/21/20 01/21/20 12:50 13:41 Temperature 37.1 C Heart Rate 78 70 Respiratory 18 18 Rate Blood Pressure 141/99 H 141/99 H O2 Saturation 100 94 Oxygen O2 Source Room air - EKG (time done) 1300 Rate: Rate (enter#) (79) Rhythm: NSR [place]: Normal Intervals: Normal MD QRS: Normal Ischemia: Non specific changes Compare to prior EKG: Old EKG unavailable Computer interpretation: Agree with computer - Labs Labs: Laboratory Tests 01/21/20 01/21/20 01/21/20 13:05 13:05 13:05 WBC 6.1 RBC 4.09 L Hgb 11.6 L Hct 36.4 L MCV 89.0 MCH 28.4 MCHC 31.9 L RDW 13.2 Plt Count 216 MPV 8.9 Neut # (Auto) 3.7 Lymph # (Auto) 1.8 [place] # (Auto) 0.4 Eos # (Auto) 0.1 Baso # (Auto) 0.0 Absolute Nucleated RBC 0.00 Nucleated RBC % 0.0 D-Dimer 860.4 H Sodium 141 Potassium 3.4 L Chloride 104 Carbon Dioxide 29 Anion Gap 8.0 BUN 8 Creatinine 1.0 Estimated GFR (MDRD) 64 L Glucose 103 H Calcium 8.8 Total Bilirubin 0.4 AST 24 ALT 25 Alkaline Phosphatase 52 Troponin I High Sens B-Natriuretic Peptide Total Protein 6.5 L Albumin 3.4 Globulin 3.1 Albumin/Globulin Ratio 1.1 Lipase 30 Serum HCG, Qual 01/21/20 01/21/20 01/21/20 13:05 13:05 13:05 WBC RBC Hgb Hct MCV MCH MCHC RDW Plt Count MPV Neut # (Auto) Lymph # (Auto) [place] # (Auto) Eos # (Auto) Baso # (Auto) Absolute Nucleated RBC Nucleated RBC % D-Dimer Sodium Potassium Chloride Carbon Dioxide Anion Gap BUN Creatinine Estimated GFR (MDRD) Glucose Calcium Total Bilirubin AST ALT Alkaline Phosphatase Troponin I High Sens 3.8 B-Natriuretic Peptide 1014 H Total Protein Albumin Globulin Albumin/Globulin Ratio Lipase Serum HCG, Qual NEGATIVE - Rads (name of study) CXR Radiology: Final report received (No acute cardiopulmonary process) PD MEDICAL DECISION MAKING - ED course Complexity details: reviewed old records, reviewed results, re-evaluated patient, considered differential, d/w patient, d/w family ED course: 34-year-old female presents to the emergency department for evaluation of dyspnea and what she reports as leg swelling. She was seen here overnight on 17 January for abdominal pain and found to have acute appendicitis with abscess formation. She was taken to surgery and discharged home shortly thereafter. She does have a DALTON drain exiting her right lower quadrant. Given the dyspnea and her reports of leg swelling I am very concerned that she may have a pulmonary embolus. Her labs today reveal an elevated BNP as well as a d-dimer. Her chest x-ray shows no cardiomegaly or signs of heart failure but with the elevated d-dimer and BNP I am concerned that she may be having some right heart strain. Unfortunately our CAT scanner is down here in the emergency department we will therefore transfer her emergently to [facility]. I spoken with SHANITA Medrano at [facility] and she has agreed to accept the patient in transfer. Patient will be taken via ALS transport. She has been placed on 2 L nasal cannula as her oxygen did diminished to about 90% shortly after ambulation. She was given Lovenox 100 mg subcu once prior to transport. Departure - Departure Disposition: 02 Transfer Acute Care Hosp Clinical Impression: D-dimer, elevated, Elevated brain natriuretic peptide (BNP) level Dyspnea Qualifiers: Dyspnea type: unspecified Qualified Code(s): R06.00 - Dyspnea, unspecified
--- NOTE | 2020-01-21 13:31 | XRAY Report ---
PROCEDURE: Chest 1 View X-Ray INDICATIONS: Chest Pain TECHNIQUE: One view of the chest was acquired. COMPARISON: 08/16/2019 FINDINGS: Surgical changes and devices: None. Lungs and pleura: No acute consolidation. No pleural effusions or pneumothorax. Mediastinum: Mediastinal contours appear unchanged. Heart size is normal. Bones and chest wall: No suspicious bony lesions. Overlying soft tissues appear unremarkable. IMPRESSION: 1. No acute cardiopulmonary disease. Reviewed by: Dov Gomez MD on 01/21/2020 1:29 PM PDT Approved by: Dov Gomez MD on 01/21/2020 1:29 PM PDT Station ID: [id number]
[2020-01-21 13:32] LABS: ALBUMIN 3.4 g/dL (3.2-5.5); ALBUMIN/GLOBULIN RATIO 1.1 (1.0-2.2); BILIRUBIN,TOTAL 0.4 mg/dL (0.2-1.0); CALCIUM 8.8 mg/dL (8.5-10.3); TOTAL PROTEIN 6.5 g/dL (6.7-8.2)
[2020-01-21 13:54] LABS: HCG,QUALITATIVE BLOOD NEGATIVE
[2020-01-21] MEDS ORDERED: ENOXAPARIN 100 MG/ML SYRINGE SUBQ STA (14:07)
[2020-01-21 14:13] VITALS: BP 126/81
== END 2020-01-21 14:29 | disposition short-term general hospital (02) ==
LOC: ED 12:48
DX: R79.1 Abnormal coagulation profile (principal); R79.89 Other specified abnormal findings of blood chemistry; R06.00 Dyspnea, unspecified
CPT/HCPCS: 36415; 71045; 80053; 83690; 83880; 84484; 84703; 85025; 85379; 93005; 96372; 99284; 99285; J1650

== ENCOUNTER 2020-01-21 14:32 | Outpatient (CLI) | payer OTHER | END 2020-01-21 14:33 | disposition short-term general hospital (02) | LOC: EMS 14:32 | PROVIDERS: ATTEND Surgery | DX: R06.00 Dyspnea, unspecified (principal); R79.89 Other specified abnormal findings of blood chemistry | CPT/HCPCS: A0425; A0426 ==

== ENCOUNTER 2020-01-23 22:39 | Emergency (ER) | payer OTHER ==
[2020-01-23 22:49] VITALS: BP 138/77
--- NOTE | 2020-01-23 22:49 | ED Physician Documentation ---
History of Present Illness - Stated complaint Stated Complaint: RASH - Chief complaint Chief Complaint: General - History obtained from History obtained from: Patient - Additonal information Additional information: 34-year-old female presents with a rash to her abdomen after she was started on doxycycline and Augmentin for presumed pneumonia after she had a CT scan of the chest to rule out PE as well as ultrasound of the bilateral lower extremities to rule out DVT as well as CT scan of the abdomen pelvis after she had an appendectomy several days previously and had a drain placed that was removed yesterday by her surgeon Dr. Azevedo. She denies any chest pain or shortness of breath currently denies any difficulty speaking or breathing.She denies any fevers or cough. Review of Systems Constitutional: reports: Reviewed and negative Eyes: reports: Reviewed and negative Ears: reports: Reviewed and negative Nose: reports: Reviewed and negative Throat: reports: Reviewed and negative Cardiac: reports: Reviewed and negative Respiratory: reports: Reviewed and negative GI: reports: Reviewed and negative : reports: Reviewed and negative Skin: reports: Rash, Reviewed and negative Musculoskeletal: reports: Reviewed and negative Neurologic: reports: Reviewed and negative Psychiatric: reports: Reviewed and negative Endocrine: reports: Reviewed and negative Immunocompromised: reports: Reviewed and negative PD PAST MEDICAL HISTORY - Past Medical History Cardiovascular: None Respiratory: None Neuro: None Endocrine/Autoimmune: None GI: None 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 : None HEENT: None Psych: None Musculoskeletal: None Derm: None - Past Surgical History Past Surgical History: No - Present Medications Home Medications: Ambulatory Orders Medication Instructions Recorded Confirmed Cetirizine [ZyrTEC] 10 mg PO DAILY PRN 01/18/20 01/18/20 Hydrocodone/Acetaminophen 1 each PO Q4HR PRN #20 tablet 01/19/20 [Hydrocodone-Acetamin 5-325 mg] Ondansetron Odt [Zofran Odt] 4 mg PO Q6H PRN #15 tablet 01/19/20 - Allergies Allergies/Adverse Reactions: Allergies Allergy/AdvReac Type Severity Reaction Status Date / Time No Known Drug Allergies Allergy Verified 01/23/20 22:49 - Social History Does the pt smoke?: No Smoking Status: Never smoker Does the pt drink ETOH?: No Does the pt have substance abuse?: No - Immunizations Immunizations are current?: Yes - POLST Patient has POLST: No PD ED PE NORMAL - Vitals Vital signs reviewed: Yes - General General: Alert and oriented X 3, No acute distress, Well developed/nourished - HEENT HEENT: Atraumatic, PERRL, EOMI, Ears normal, Moist mucous membranes, Pharynx benign, Dentition benign, Other - Neck Neck: Supple, no meningeal sign - Cardiac Cardiac: RRR, No murmur - Respiratory Respiratory: Clear bilaterally - Abdomen Abdomen: Normal bowel sounds, Soft, Non tender, Non distended - Derm Derm: Warm and dry, Other (Fine rash noted on the abdomen diffusely there is no petechiae or purpura. They are nonpainful there is no crepitus no fluctuance or induration and appears to be a fine maculopapular rash diffusely on the abdomen.) - Extremities Extremities: No deformity - Neuro Neuro: Alert and oriented X 3 - Psych Psych: Normal mood, Normal affect Results - Vitals Vitals: Vital Signs - 24 hr 01/23/20 01/23/20 01/23/20 22:47 23:06 23:08 Temperature 37.0 C Heart Rate 90 Respiratory 16 16 16 Rate Blood Pressure 138/77 H O2 Saturation 100 01/24/20 00:05 Temperature Heart Rate 75 Respiratory 16 Rate Blood Pressure O2 Saturation 98 Oxygen O2 Source Room air PD MEDICAL DECISION MAKING - ED course ED course: Given this patient's presentation I suspect she is having an adverse reaction from the Augmentin. I reviewed her results of imaging that was done at [facility] there is no definitive evidence of pneumonia but it was something that was suggested in the CT scan of the chest. The patient has no fever no cough at this point I recommend her discontinue Augmentin and she should continue the doxycyclineAnd follow-up with her primary care provider tomorrow as well as her surgeon she should return the emergency department for fever shortness of breath cough or any concerns whatsoever.May also take you a Benadryl as needed. Departure - Departure Disposition: 01 Home, Self Care Clinical Impression: Allergic reaction caused by a drug Qualifiers: Encounter type: initial encounter Qualified Code(s): T78.40XA - Allergy, unspecified, initial encounter Condition: Stable Instructions: ED Drug React Adverse Other Follow-Up: your, doctor [Other] - Tomorrow Comments: discontinue augmentin, continue to take doxycycline, Please call your primary care provider tomorrow to schedule follow-up. Return to the emergency department with any concerns to include chest pain, shortness of breath fevers. Discharge Date/Time: 01/24/20 00:06
== END 2020-01-24 00:06 | disposition home or self-care (01) ==
LOC: ED 22:39
DX: L27.1 Localized skin eruption due to drugs and medicaments taken internally (principal); T36.0X5A Adverse effect of penicillins, initial encounter; T36.1X5A Adverse effect of cephalosporins and other beta-lactam antibiotics, initial encounter
CPT/HCPCS: 99281; 99284

== ENCOUNTER 2022-03-11 12:55 | Emergency (ER) | payer OTHER ==
--- NOTE | 2022-03-11 13:30 | ED Physician Documentation ---
PD HPI CHEST PAIN - Stated complaint Stated Complaint: CHEST TIGHT/HEAD PX/WOBBLY - Chief complaint Chief Complaint: Cardiac - History obtained from History obtained from: Patient - Additional information Additional information: 36-year-old otherwise healthy woman presents for the evaluation of chest tightness. Its been going on for about 2 weeks, coming and going. It is not associated with exercise and she was able to run several miles today without exacerbating the chest pain. It is central and nonradiating. It is a tight sensation. There is no association with eating. No leg swelling. Not on control. No shortness of breath. at the bedside also has specific concerns about anorexia. And the patient corroborates body image issues feeling like she needs to lose weight despite being a BMI of 18. They are in marital counseling. Review of Systems Ten Systems: 10 systems reviewed and negative Constitutional: reports: Fatigue. denies: Fever, Chills Cardiac: reports: Chest pain / pressure. denies: Palpitations Respiratory: denies: Dyspnea, Cough PD PAST MEDICAL HISTORY - Past Medical History Cardiovascular: None Respiratory: None Neuro: None Endocrine/Autoimmune: None GI: None DIETARY MANAGER: None : None HEENT: None Psych: None Musculoskeletal: None Derm: None - Past Surgical History Past Surgical History: No General: Appendectomy - Present Medications Home Medications: Ambulatory Orders Medication Instructions Recorded Confirmed Sertraline [Zoloft] 25 mg PO DAILY 03/11/22 03/11/22 - Allergies Allergies/Adverse Reactions: Allergies Allergy/AdvReac Type Severity Reaction Status Date / Time Penicillins Allergy Rash Verified 03/11/22 13:08 - Social History Does the pt smoke?: No Smoking Status: Never smoker Does the pt drink ETOH?: No Does the pt have substance abuse?: No - Immunizations Immunizations are current?: Yes - POLST Patient has POLST: No PD ED PE NORMAL - Vitals Vital signs reviewed: Yes - General General: Alert and oriented X 3, No acute distress - HEENT HEENT: PERRL, EOMI - Neck Neck: Supple, no meningeal sign, No bony TTP - Cardiac Cardiac: RRR, No murmur - Respiratory Respiratory: No respiratory distress, Clear bilaterally - Abdomen Abdomen: Non tender - Back Back: No CVA TTP, No spinal TTP - Derm Derm: Normal color, Warm and dry - Extremities Extremities: No edema, No calf tenderness / cord - Neuro Neuro: Alert and oriented X 3, Normal speech Results - Vitals Vitals: Vital Signs - 24 hr 03/11/22 03/11/22 12:59 14:26 Temperature 36.6 C Heart Rate 58 L 58 L Respiratory 16 13 Rate Blood Pressure 133/92 H 121/81 H O2 Saturation 100 100 Oxygen O2 Source Room air - EKG (time done) 1259 Rate: Rate (enter#) (64) Rhythm: NSR [place]: Normal Intervals: Normal NC QRS: Normal Ischemia: Normal ST segments - Labs Labs: Laboratory Tests 03/11/22 03/11/22 03/11/22 13:27 13:27 13:27 WBC 4.2 L RBC 4.41 Hgb 13.3 Hct 40.5 MCV 91.8 MCH 30.2 MCHC 32.8 RDW 13.6 Plt Count 175 MPV 9.1 Neut # (Auto) 2.4 Lymph # (Auto) 1.5 [place] # (Auto) 0.2 Eos # (Auto) 0.0 Baso # (Auto) 0.0 Absolute Nucleated RBC 0.00 Nucleated RBC % 0.0 Sodium 140 Potassium 3.7 Chloride 103 Carbon Dioxide 27 Anion Gap 10.0 BUN 13 Creatinine 0.8 Estimated GFR (MDRD) 82 L Glucose 105 H Calcium 10.0 Total Bilirubin 0.4 AST 26 ALT 23 Alkaline Phosphatase 27 L Troponin I High Sens < 2.3 L Total Protein 7.3 Albumin 5.0 Globulin 2.3 Albumin/Globulin Ratio 2.2 Lipase 40 Urine Color Urine Clarity Urine pH Ur Specific [place] Urine Protein Urine Glucose (UA) Urine Ketones Urine Occult Blood Urine Nitrite Urine Bilirubin Urine Urobilinogen Ur Leukocyte Esterase Ur Microscopic Review Urine Culture Comments Urine HCG, Qual 03/11/22 13:30 WBC RBC Hgb Hct MCV MCH MCHC RDW Plt Count MPV Neut # (Auto) Lymph # (Auto) [place] # (Auto) Eos # (Auto) Baso # (Auto) Absolute Nucleated RBC Nucleated RBC % Sodium Potassium Chloride Carbon Dioxide Anion Gap BUN Creatinine Estimated GFR (MDRD) Glucose Calcium Total Bilirubin AST ALT Alkaline Phosphatase Troponin I High Sens Total Protein Albumin Globulin Albumin/Globulin Ratio Lipase Urine Color LIGHT YELLOW Urine Clarity CLEAR Urine pH 7.0 Ur Specific [place] 1.010 Urine Protein NEGATIVE Urine Glucose (UA) NEGATIVE Urine Ketones NEGATIVE Urine Occult Blood NEGATIVE Urine Nitrite NEGATIVE Urine Bilirubin NEGATIVE Urine Urobilinogen 0.2 (NORMAL) Ur Leukocyte Esterase NEGATIVE Ur Microscopic Review NOT INDICATED Urine Culture Comments NOT INDICATED Urine HCG, Qual NEGATIVE PD MEDICAL DECISION MAKING - ED course ED course: Heart score 0. Patient thinks is anxiety and she is under a lot of stress. She appears well. She also has a headache but it is relatively mild, gradual onset, certainly not the "worst of her life." Her had some concerns about potential anorexia and talking to the patient she does have severe body image issues stating that she "needs to do some work" to lose weight and feels this every time she looks in the mirror to speak being underweight. She is referred to counseling for this. Departure - Departure Disposition: Home, Self Care Condition: Good Record reviewed to determine appropriate education?: Yes Instructions: ED Chest Pain NonCardiac Comments: Regarding the chest pain, there are no findings concerning for serious disease of the heart or other serious cause of chest pain. Regarding the concern for anorexia, your BMI today is 18.6 which is underweight. There are no electrolyte or organ function abnormalities that are concerning at this point. I would recommend you follow-up for specific counseling for this in addition to the marital counseling you are already receiving. I was able to find the following clinics that do specific counseling for eating disorders, 2 are in [place], 1 in [place]. [email or web address] Discharge Date/Time: 03/11/22 14:26
[2022-03-11 13:37] LABS: BASOPHILS % (AUTO) 0.7 %; HCT - HEMATOCRIT 40.5 % (37.0-47.0); HGB - HEMOGLOBIN 13.3 g/dL (12.0-16.0); LYMPHOCYTES # (AUTO) 1.5 10^3/uL (1.5-3.5); LYMPHOCYTES % (AUTO) 36.6 %; MEAN CORPUSCULAR HEMOGLOBIN 30.2 pg (27.0-31.0); MEAN CORPUSCULAR HGB CONC 32.8 g/dL (32.0-36.0); MEAN CORPUSCULAR VOLUME 91.8 fL (81.0-99.0); MEAN PLATELET VOLUME 9.1 fL (7.9-10.8); MONOCYTES # (AUTO) 0.2 10^3/uL (0.0-1.0); MONOCYTES % (AUTO) 4.6 %; NEUTROPHILS # (AUTO) 2.4 10^3/uL (1.5-6.6); NEUTROPHILS % (AUTO) 56.9 %; PLT - PLATELET COUNT 175 10^3/uL (130-450); RED BLOOD COUNT 4.41 10^6/uL (4.20-5.40); RED CELL DISTRIBUTION WIDTH 13.6 % (12.0-15.0); WHITE BLOOD COUNT 4.2 x10^3/uL (4.8-10.8)
[2022-03-11 13:44] LABS: BILIRUBIN,URINE NEGATIVE (NEGATIVE); GLUCOSE, URINE (UA) NEGATIVE (NEGATIVE); KETONES,URINE (UA) NEGATIVE (NEGATIVE); LEUKOCYTE ESTERASE, URINE NEGATIVE (NEGATIVE); NITRITE,URINE NEGATIVE (NEGATIVE); OCCULT BLOOD,URINE NEGATIVE (NEGATIVE); PROTEIN,URINE NEGATIVE (NEGATIVE); UROBILINOGEN,URINE 0.2 (NORMAL) E.U./dL (NORMAL)
[2022-03-11 13:47] LABS: CLARITY,URINE CLEAR (CLEAR); HCG UR QUAL NEGATIVE
[2022-03-11 13:51] LABS: ALBUMIN/GLOBULIN RATIO 2.2 (1.0-2.2); BILIRUBIN,TOTAL 0.4 mg/dL (0.2-1.0); CREATININE 0.8 mg/dL (0.4-1.0); POTASSIUM 3.7 mmol/L (3.5-5.0); TOTAL PROTEIN 7.3 g/dL (6.7-8.2)
--- NOTE | 2022-03-11 14:17 | XRAY Report ---
PROCEDURE: Chest 1 View X-Ray INDICATIONS: chest pain TECHNIQUE: One view of the chest was acquired. COMPARISON: 01/21/2020 FINDINGS: Surgical changes and devices: None. Lungs and pleura: No pleural effusions or pneumothorax. Lungs are clear. Mediastinum: Mediastinal contours appear normal. Heart size is normal. Bones and chest wall: No suspicious bony lesions. Overlying soft tissues appear unremarkable. IMPRESSION: No acute radiographic abnormality. Reviewed by: Emeterio Ricks MD on 03/11/2022 2:15 PM PDT Approved by: Emeterio Ricks MD on 03/11/2022 2:15 PM PDT Station ID: [id number]
[2022-03-11 14:27] VITALS: BP 121/81
== END 2022-03-11 14:26 | disposition home or self-care (01) ==
LOC: ED 12:55
DX: R07.89 Other chest pain (principal); R63.6 Underweight; Z68.1 Body mass index [BMI] 19.9 or less, adult
CPT/HCPCS: 36415; 80053; 81001; 81003; 81025; 83690; 84484; 85025; 87086; 93005; 99282; 99284